=== PATIENT | female | born 1965 | race Caucasian/White ===

== ENCOUNTER 2018-01-20 09:03 | Emergency (ER) | payer OTHER ==
[~2018-01-20] VITALS: Ht 170.2 cm; Wt 54.3 kg
[~2018-01-20 09:03] MED LIST: DICL50TA PO; MEDR4PAK PO; ROBA750T PO
[2018-01-20 09:09] VITALS: BP 100/55; PULSE 85; RESP 16; TEMP 98.1; O2SAT 98
--- NOTE | 2018-01-20 09:26 | PD ---
HPI Chief Complaint: Complaint Time Seen by Provider: 09:11 Travel History International Travel<30 days: No Contact w/Intl Traveler<30days: No Traveled to known affect area: No History of Present Illness HPI 52-year-old female presents to the emergency department for evaluation of suprapubic pressure when she urinates her right after she urinates. Patient also reports some intermittent frequency and urgency. She believes she may have a UTI. She has not had any fevers that she is aware of. No vomiting. No flank pain. She denies any abnormal vaginal discharge or risk of STDs. Current pain is 2/10, pressure, without radiation to the suprapubic area. Exacerbating factor is urination. Alleviating factors Azo. Mild severity. PFSH Past Medical History Hx Anticoagulant Therapy: No Diminished Hearing: No ?: Not Past Surgical History Cholecystectomy: Yes Other Surgery: Yes (BREAST AUG, tumy tuck) Social History Alcohol Use: Yes (COUPLE TIMES PER MONTH) Tobacco Use: Yes (QUIT 09/01) Substance Use: No Allergies-Medications (Allergen,Severity, Reaction): Coded Allergies: belladonna alkaloids (Unverified Allergy, Severe, rash, 01/20/18) Reported Meds & Prescriptions Reported Meds & Active Scripts Active No Active Prescriptions or Reported Medications Review of Systems Except as stated in HPI: all other systems reviewed are Neg Physical Exam Narrative GENERAL: Well-nourished, well-developed female patient, ambulatory. Afebrile. SKIN: Focused skin assessment warm/dry. HEAD: Normocephalic. Atraumatic EYES: No scleral icterus. No injection or drainage. NECK: Supple, trachea midline. No JVD or lymphadenopathy. CARDIOVASCULAR: Regular rate and rhythm without murmurs, gallops, or rubs. RESPIRATORY: Breath sounds equal bilaterally. No accessory muscle use. Lung sounds are clear to auscultation. GASTROINTESTINAL: Abdomen soft, non-tender, nondistended. MUSCULOSKELETAL: No cyanosis, or edema. BACK: No CVA tenderness. Data Data Last Documented VS Vital Signs Date Time Temp Pulse Resp B/P (MAP) Pulse Ox O2 Delivery O2 Flow Rate FiO2 01/20/18 09:09 98.1 85 16 100/55 (70) 98 Orders Orders Urinalysis - C+S If Indicated (01/20/18 09:12) Urine Culture (01/20/18 09:15) Nitrofurantoin Monohyd Macrocr (Macrobid (01/20/18 10:00) Labs Laboratory Tests Test 01/20/18 09:15 Urine Collection Type CLEAN CATCH Urine Color YELLOW Urine Turbidity SL CLOUDY Urine pH 6.0 Urine Specific [place] 1.010 Urine Protein NEG mg/dL Urine Glucose (UA) NEG mg/dL Urine Ketones NEG mg/dL Urine Occult Blood NEG Urine Nitrite POS Urine Bilirubin NEG Urine Urobilinogen 0.2 MG/DL Urine Leukocyte Esterase TRACE Urine WBC 9-14 /hpf Urine Squamous Epithelial Cells 6-8 /hpf Urine Bacteria MANY /hpf Microscopic Urinalysis Comment CULTURE INDICATED Urine Collection Time 09:15 [facility] Medical Decision Making Medical Screen Exam Complete: Yes Emergency Medical Condition: Yes Medical Record Reviewed: Yes Differential Diagnosis UTI versus pyelonephritis versus dysuria Narrative Course 52-year-old female presents to the emergency department for evaluation of urinary symptoms. UA is ordered and pending. UA shows positive nitrite, trace leukocyte esterase, 9-14 WBC, many bacteria. Patient will be started on Macrobid for UTI. She is given her first dose here. The patient was discharged in stable condition with instructions, including return instructions and follow up instructions. Diagnosis Primary Impression: Urinary tract infection Qualified Codes: N30.00 - Acute cystitis without hematuria Referrals: Primary Care Physician call for appointment Patient Instructions: General Instructions, Urinary Tract Infection in Women ( ED) Additional Instructions: Take antibiotic as directed until gone. Drink plenty of fluids. Follow-up with a primary care physician. Return to the emergency department for any acute worsening of symptoms. Med/Other Pt SpecificInfo: Prescription(s) given Scripts Nitrofurantoin Monohydrate Macrocrystals (Macrobid) 100 Mg Capsule 100 MG PO BID for Infection for 7 Days, #14 CAP 0 Refills Prov: Pao Cade 01/20/18 Disposition: 01 DISCHARGE HOME Condition: Stable Pao Cade Jan 20, 2018 09:26
[2018-01-20 09:32] LABS: BILIRUBIN, URINE NEG (NEG); BLOOD, URINE NEG (NEG); GLUCOSE,URINE NEG (NEG); KETONE, URINE NEG (NEG); NITRITE,URINE POS (NEG); URINE COLOR YELLOW (YELLW/STRAW); URINE LEUKOCYTE ESTERASE TRACE (NEG)
[2018-01-20 09:36] LABS: BACTERIA, URINE MANY /hpf
[2018-01-20] MEDS ORDERED: MACR100C2 PO (09:53)
[2018-01-20] MEDS ORDERED: NITROFURANTOIN MONOHYD MACROCR 100 MG CAP PO ONE (10:00)
== END 2018-01-20 10:01 | disposition home or self-care (01) ==
LOC: PHEFT 09:03
DX: N39.0 Urinary tract infection, site not specified (principal); B96.20 Unspecified Escherichia coli [E. coli] as the cause of diseases classified elsewhere; Z87.891 Personal history of nicotine dependence
CPT/HCPCS: 81001; 87077; 87086; 87186; 99283